=== PATIENT | male | born 1965 | race African-American/Black ===

== ENCOUNTER 2018-10-06 09:24 | Emergency (ER) | payer OTHER ==
[~2018-10-06] VITALS: Ht 185.4 cm; Wt 70.0 kg
[2018-10-06] MEDS ORDERED: KETOROLAC 15MG/ML VIAL IM ONE (11:00)
[2018-10-06 11:22] VITALS: BP 133/84
== END 2018-10-06 11:25 | disposition home or self-care (01) ==
LOC: ER 09:24
DX: S16.1XXA Strain of muscle, fascia and tendon at neck level, initial encounter (principal); S09.8XXA Other specified injuries of head, initial encounter; M54.9 Dorsalgia, unspecified; V43.52XA Car driver injured in collision with other type car in traffic accident, initial encounter; Y93.89 Activity, other specified; Y92.89 Other specified places as the place of occurrence of the external cause; Y99.8 Other external cause status
CPT/HCPCS: 96372; 99283; J1885